=== PATIENT | female | born 1990 | race Caucasian/White ===

== ENCOUNTER 2017-02-11 00:05 | Inpatient (IN) ==
--- NOTE | 2017-02-11 00:45 | Emergency Department Note ---
Disposition Clinical Impression: Rhabdomyolysis Qualifiers: Rhabdomyolysis type: non-traumatic Qualified Code(s): M62.82 - Rhabdomyolysis Disposition: Admitted As Inpatient Condition: Good Time of Disposition: 05:04 General Adult HPI - General Chief complaint: ED General Medical Stated complaint: muscle pain all over Time Seen by Provider: 02/11/17 00:34 Source: patient Nursing Notes Reviewed: Yes Vital Signs Reviewed: Yes - History of Present Illness HPI Narrative: 26-year-old female complains of generalized muscle aches, which have been worsening over the past week. She was seen in her primary care provider recently for the same and received lab work. She states she was not told the results of these, but presented to emergency department with worsening pain. Past medical history includes Shaye's/Graves' disease, she states that her thyroid has been removed and she is currently taking levothyroxine. She denies any recent fevers, shortness of breath, seizures, trauma, increases in her exercise workout routine. Pt Subjective Complaint: Muscle aches Onset (ago): week(s) Location: other (Generalized) Pain Scale: 8 Quality: aching Consistency: Worsening Improves with: nothing Worsens with: movement Associated symptoms: Denies: chest pain, diaphoresis, fever/chills, headaches, nausea/vomiting, rash, seizure, shortness of breath, syncope, weakness, other ( denies injury/trauma) Treatments Prior to Arrival: NSAID - Related Data Home Medications Medication Instructions Recorded Confirmed Levothyroxine 137 mcg PO ONCE 02/11/17 02/11/17 Allergies Allergy/AdvReac Type Severity Reaction Status Date / Time nystatin Allergy Blister Verified 02/11/17 00:30 All systems ED: reviewed and negative except as stated. Constitutional: Denies: fever Eyes: Denies: eye pain ENT ED: Denies: ear pain Cardiovascular: Denies: chest pain, paroxysmal nocturnal dyspnea Respiratory: Denies: dyspnea Gastrointestinal: Denies: abdominal pain, nausea, vomiting Genitourinary: Denies: dysuria Musculoskeletal: Denies: back pain Integumentary: Denies: rash Neurological: Denies: headache Psychiatric: Denies: anxiety Endocrine: Denies: fatigue Hematological/Lymphatic: Denies: easy bleeding Allergic/Immunologic: Denies: facial swelling Past Medical History - Past Medical History Medical history: Reports: kidney stones, thyroid disease Psychiatric history: Reports: anxiety - Social History Smoking Status: Never smoker Alcohol use: Reports: none Drug use: Reports: none Physical Exam - General Limitations: no limitations General appearance: alert, in no apparent distress - Head Head exam: normocephalic - Eye Eye exam: Present: EOMI. Absent: conjunctival injection - ENT ENT exam: normal oropharynx, mucous membranes moist - Neck Neck exam: Present: full ROM. Absent: tenderness, meningismus - Chest Chest inspection: Present: symmetric chest wall rise - Respiratory Respiratory exam: Present: normal lung sounds bilaterally. Absent: respiratory distress - Cardiovascular Cardiovascular exam: Present: regular rate, normal rhythm - Abdominal Exam Abdominal exam: Present: soft, Non-Tender, normal bowel sounds - Extremities Exam Extremities exam: Present: normal inspection, tenderness, normal capillary refill - Back Exam Back exam: Present: normal inspection, full ROM. Absent: CVA tenderness (R), CVA tenderness (L) - Neurological Exam Neurological exam: Present: alert, oriented X3 - Psychiatric Psychiatric exam: Present: normal affect, normal mood - Skin Skin exam: Present: warm, dry, intact, normal color. Absent: rash, cyanosis, diaphoresis Course Course Narrative: 26-year-old female complains of muscle aches 3 days. She states they started after her kidney stone pass last week. She is scheduled to see Dr. Lawson next week. She is at her primary care provider's office he had drawn some lab work. Her able to review those labs today, and she does have an elevated CK, as well as liver enzymes. Her TSH is decreased, however she states that this is chronic. Her creatinine function is within normal limits. Patient states that she has been lifting small hand weights and exercising 2 miles over the past 3 months, denies any heat exposure, ears, chills., Chest pain, shortness of breath. Weakness. We will draw additional lab work, UA, and start fluids. Patient seen and examined. She is resting antiemetic, after becoming nauseous during the IV placement. - Reevaluation(s) Reevaluation #1: Patient has elevated CK, but indicated on urinalysis. Patient has recent the past kidney stone, positive blood possibly from kidney stone versus myoglobin. However in light of her muscle aches, will treat as rhabdo. Patient also is elevated liver enzymes, chronic thyroid disease. Reevaluation #2: I discussed patient with Dr. Park, who also had a stomach palpation, and had advised admission for further treatment and evaluation. Patient agreeable to admission. She states no relief after [place] pain medication, will order a muscle relaxer. Time: 04:36 Reevaluation #3: Patient discussed with and accepted by hospitalist Dr. Humphrey, who also requested repeat CK, ionized calcium, phosphorus, magnesium. He also stated patient will need a telemetry bed for monitoring. Time: 05:03 Vital Signs Temperature 98.2 F 02/11/17 00:27 Pulse Rate 98 02/11/17 00:27 Respiratory Rate 16 02/11/17 00:27 Blood Pressure 111/87 02/11/17 00:27 O2 Sat by Pulse Oximetry 98 02/11/17 00:27 Temperature 97.9 F 02/11/17 07:04 Pulse Rate 86 02/11/17 07:04 Respiratory Rate 18 02/11/17 07:04 Blood Pressure 101/67 02/11/17 07:04 O2 Sat by Pulse Oximetry 99 02/11/17 07:04 Oxygen Delivery Oxygen Delivery Room Air Medical Decision Making - MDM Narrative Medical decision making narrative: Patient presented with one week history of generalized muscle aches. She is seen at her PCPs office yesterday and had drawn lab work. She presented at the worst department today with worsening pain. Review of her PCP ordered lab work shows elevated CK, further evaluation showed a ablation LDL, liver enzymes. No elevated creatinine, no evidence of any renal dysfunction at this time. She was given a total 4 L here in the emergency department. I discussed patient with Dr. Park also had face time with patient, and advised for admission. Patient was discussed with and accepted by hospitalist. She was given [place] and Norflex for her pain. Her vitals are stable. All Lab Results (24 Hours) 02/11/17 02/11/17 02/11/17 Range/Units 00:40 00:46 06:00 Sodium 137 (136-145) mEq/L Potassium 3.9 (3.5-4.5) mEq/L Chloride 101 (98-109) mEq/L Carbon Dioxide 25 (19-29) mEq/L BUN 17 (7-20) mg/dL Creatinine 0.80 (0.57-1.11) mg/dL Est GFR ( Amer) > 60 (> 60) Est GFR (Non-Af Amer) > 60 (> 60) BUN/Creatinine Ratio 21 (6-26) Glucose 84 (70-99) mg/dL Calculated Osmolality 285 (280-300) Calcium 10.0 (8.6-10.8) mg/dL Ionized Calcium 1.18 (1.15-1.35) mmol/L Phosphorus 4.7 (2.3-4.7) mg/dL Magnesium 1.9 (1.6-2.6) mg/dL Lactate Dehydrogenase 722 H (159-327) Units/L Creatine Kinase 62012 H (29-168) Units/L Urine Color Yellow (Yellow) Urine Clarity Cloudy A (Clear) Urine pH 6.0 (5.0-8.0) pH Units Ur Specific [place] 1.029 H (1.010-1.025) Urine Protein 30 H (Neg-Trace) mg/dL Urine Glucose (UA) Normal (Normal) mg/dL Urine Ketones Negative (Negative) mg/dL Urine Blood Moderate H (Negative) Urine Nitrite Negative (Negative) Urine Bilirubin Negative (Negative) Urine Urobilinogen Normal (Normal) mg/dL Ur Leukocyte Esterase Moderate H (Negative) Urine Microscopic RBC 0-3 (0-3) per hpf Urine Microscopic WBC 50-100 H (0-3) per hpf Ur Squamous Epith Cells Many H (None-Few) per lpf Calcium Oxalate Crystal Present Urine Bacteria Many H (None-Few) per hpf Hyaline Casts None Seen (None-Few) per lpf Ur Culture Indicated? YES A (NO) - Medical Records Medical records reviewed: Yes I reviewed the patient's medical records. - Lab Data Lab results reviewed: Yes I reviewed the patient's lab results. Result diagrams: 02/11/17 00:46 Lab Results 02/11/17 02/11/17 Range/Units 00:40 00:46 Sodium 137 (136-145) mEq/L Potassium 3.9 (3.5-4.5) mEq/L Chloride 101 (98-109) mEq/L Carbon Dioxide 25 (19-29) mEq/L BUN 17 (7-20) mg/dL Creatinine 0.80 (0.57-1.11) mg/dL Est GFR ( Amer) > 60 (> 60) Est GFR (Non-Af Amer) > 60 (> 60) BUN/Creatinine Ratio 21 (6-26) Glucose 84 (70-99) mg/dL Calculated Osmolality 285 (280-300) Calcium 10.0 (8.6-10.8) mg/dL Phosphorus 4.7 (2.3-4.7) mg/dL Magnesium 1.9 (1.6-2.6) mg/dL Lactate Dehydrogenase 722 H (159-327) Units/L Creatine Kinase 47973 H (29-168) Units/L Urine Color Yellow (Yellow) Urine Clarity Cloudy A (Clear) Urine pH 6.0 (5.0-8.0) pH Units Ur Specific [place] 1.029 H (1.010-1.025) Urine Protein 30 H (Neg-Trace) mg/dL Urine Glucose (UA) Normal (Normal) mg/dL Urine Ketones Negative (Negative) mg/dL Urine Blood Moderate H (Negative) Urine Nitrite Negative (Negative) Urine Bilirubin Negative (Negative) Urine Urobilinogen Normal (Normal) mg/dL Ur Leukocyte Esterase Moderate H (Negative) Urine Microscopic RBC 0-3 (0-3) per hpf Urine Microscopic WBC 50-100 H (0-3) per hpf Ur Squamous Epith Cells Many H (None-Few) per lpf Calcium Oxalate Crystal Present Urine Bacteria Many H (None-Few) per hpf Hyaline Casts None Seen (None-Few) per lpf Ur Culture Indicated? YES A (NO) - Radiology Data Radiology results reviewed: Yes I reviewed the patient's radiology results. Attestation Statement - Attestation Attestation: I, Claudio Park MD, personally performed a history and physical exam of the patient and discussed their management with the midlevel provicer, PAC/TRIM MASTER OPERATOR. I reviewed the midlevel provider's note and agree with the documented findings, medical decision making, and plan of care. 26-year-old female presents to the emergency department with a complaint of generalized muscle aches and pain which started 1 week ago and has gotten progressively worse. She denies any injury no excessive activity or new exercising. He states that she did have a kidney stone last week and passed 2 stones on and then the pain started on Monday in her feet and has progressively moved up to involve her entire body. She states it feels like charley horses all over her body. She has had difficulty walking due to the pain. She states the pain does seem to get worse when she sits or still for a while and then when she gets up and moves around it gets better. She was seen yesterday by her PCP and had lab work done but does not know the results. These labs were reviewed and her CK was greater than 16,000. On examination patient is a well-developed well-nourished well-appearing young female in no acute distress. She is alert and oriented 3. There is no cyanosis or diaphoresis. Breath sounds are clear and equal bilaterally. Heart regular rate and rhythm. Abdomen soft and nontender with normal bowel sounds. Labs reviewed. The hospitalist, Dr. Humphrey, was consulted and accepted admission of the patient for acute rhabdomyolysis of uncertain etiology.
[2017-02-11 00:52] LABS: Bilirubin,Urine Negative (Negative); Blood,Urine Moderate (Negative); Clarity,Urine Cloudy (Clear); Color,Urine Yellow (Yellow); Glucose,Urine (UA) Normal (Normal); Ketones,Urine Negative (Negative); Leukocyte Esterase,Urine Moderate (Negative); Nitrite,Urine Negative (Negative); Protein,Urine 30 mg/dL (Neg-Trace); Specific Gravity,Urine 1.029 (1.010-1.025); Urobilinogen,Urine Normal (Normal)
[2017-02-11] MEDS ORDERED: Ondansetron 4 MG/2 ML VIAL IVP ONE (00:52)
[2017-02-11 00:53] LABS: Bacteria,Urine Many per hpf (None-Few); Hyaline Casts,Urine None Seen per lpf (None-Few); Squamous Epithelial Cell,Urine Many per lpf (None-Few); WBC,Urine 50-100 per hpf (0-3)
[2017-02-11] MEDS: 0.9 % Sodium Chloride 1,000 ML IVC SCH ×10 (01:00→18:02)
[2017-02-11 01:05] LABS: Calcium Oxalate Crystals,Urine Present
[2017-02-11 01:06] LABS: RBC,Urine 0-3 per hpf (0-3)
[2017-02-11 01:07] LABS: BUN/Creatinine Ratio 21 (6-26); Blood Urea Nitrogen 17 mg/dL (7-20); Carbon Dioxide 25 mEq/L (19-29); Chloride 101 mEq/L (98-109); Glucose 84 mg/dL (70-99); Osmolality,Calculated 285 (280-300); Potassium 3.9 mEq/L (3.5-4.5); Sodium 137 mEq/L (136-145); eGFR For African Americans > 60 (> 60); eGFR For Non-African Americans > 60 (> 60)
[2017-02-11 01:09] LABS: Lactate Dehydrogenase 722 Units/L (159-327)
[2017-02-11] MEDS ORDERED: *HR* HYDROcodone/Acet 5/325 mg TABLET PO ONE (03:33)
[2017-02-11] MEDS ORDERED: Orphenadrine 60 MG/2 ML VIAL IVP ONE (04:48)
[2017-02-11 05:57] LABS: Magnesium 1.9 mg/dL (1.6-2.6); Phosphorous 4.7 mg/dL (2.3-4.7)
[2017-02-11 06:28] LABS: Creatine Kinase 21715 Units/L (29-168)
[2017-02-11] MEDS ORDERED: Naloxone 0.4 MG/ML INJ IVP PRN (08:11)
--- NOTE | 2017-02-11 08:28 | Internal Med History&Physical ---
Date of Encounter: 02/11/17 Time of Encounter: 08:25 Assessment and Plan (1) Rhabdomyolysis Current visit: Yes Status: [place] [address] with elevated LDH. she has no obvious etiology, no h/o exertion out of ordinary, no trauma or fall , no new medications. she has h/o autoimmune disease Grave's disease, have to r/o other autoimmune myopathies like polymyositis or dermatomyositis , though this seems to be an acute presentation than chronic. will send ESR, CRP or aldolase, will continue IVF and muscle relaxants and follow CK levels daily. may need referral to cement mason helper if autoimmune disease seems likely. Qualifiers: Rhabdomyolysis type: non-traumatic Qualified Code(s): M62.82 - Rhabdomyolysis (2) Graves disease Current visit: Yes Status: Acute reports that it started as Shaye's which later converted to Graves' disease. She is status post total thyroidectomy and was placed on levothyroxine. However TSH is 0.022 today, will check free t3 and t4 I will hold her levothyroxine at this time given until free t3 and t4 results, she needs to be referred to an kilnman. (3) H/O renal calculi Current visit: Yes Status: Acute she says she had a renal stone which passed by itself, asymptomatic at this time (4) Transaminitis Current visit: Yes Status: Acute elevated liver enzymes most likely secondary to rhabdomyolysis. Denies any history of hepatitis in the past. We will continue IV fluids, trend of liver enzymes daily. Internal Medicine - H&P: HPI Chief complaint: muscle pain Admitted From: Home Plans for Post Hospital Care: Home History of present illness: Ms. Hickman is a 26 year old female with PMH of Shaye's disease , later converted to Graves disease and is s/p total thyroidectomy, h/o renal stone presents with complains of generalized muscle aches, which have been worsening over the past week. She was seen in her primary care provider recently for the same and received lab work. She states she was not told the results of these, but presented to emergency department with worsening pain. She denies any recent fevers, shortness of breath, seizures, trauma, increases in her exercise workout routine. she says it started with her b/l lower legs where she started hurting which gradually moved up to her body. she denies taking any new medictaion, no fever, n/v. she has no hematuria,no abdominal pain, no cough, chest pain or sob. Past Med Surg Social Fam HX - Past Medical History Medical history: kidney stones, thyroid disease Psychiatric history: anxiety - Social History Smoking Status: Never smoker Alcohol use: none Drug use: none - Family History Father Hx Family Cardiac Disorders: Yes Internal Medicine - H&P: Meds Levothyroxine Sodium [Synthroid] 137 mcg PO DAILY 02/11/17 [History] l-Norgest/E.estradiol-E.estrad [Seasonique 0.15-0.03-0.01 Tab] 1 each PO DAILY 02/11/17 [History] Allergies nystatin Allergy (Verified 02/11/17 00:30) Blister All Systems PM: A 10-system review of systems was performed and is negative for pertinent findings except as documented above in the HPI. - Constitutional Vitals: Temp Pulse Resp BP Pulse Ox 97.9 F 86 18 101/67 99 02/11/17 07:04 02/11/17 07:04 02/11/17 07:04 02/11/17 07:04 02/11/17 07:04 General appearance: Present: A&O X 3, no acute distress Exam: neck- supple chest- b/l clear, no added sounds CVS-s1 and s2,no mr//g abd-soft, non tender, bs are present ext- no edema , muscle tenderness on palpation of the ext, no redness, no weakness Internal Med - H&P Results - Labs CBC & Chem 7: 02/11/17 08:12 02/11/17 08:12
[2017-02-11 08:49] LABS: Basophils % 0.5 %; Eosinophils # 0.5 K/mcL (0.0-0.6); Hematocrit 36.5 % (35.3-44.9); Immature Granulocytes % 0.3 % (0-4); Lymphocytes # 1.7 K/mcL (0.6-4.6); Lymphocytes % 21.7 %; Mean Corpuscular HGB Conc 34.2 g/dL (31.6-35.5); Mean Corpuscular Hemoglobin 31.2 pg (28.0-33.3); Mean Platelet Volume 10.9 fL (9.4-12.4); Monocytes # 0.7 K/mcL (0.0-1.3); Monocytes % 8.3 %; Platelet Count 163 K/mcL (140-400); Red Blood Count 4.01 M/mcL (3.82-4.97); Red Cell Distribution Width 11.8 % (11.5-14.5); Segmented Neutrophils % 63.2 %
[2017-02-11 08:50] LABS: Hemoglobin 12.5 g/dL (11.5-15.4)
[2017-02-11 09:01] LABS: Alanine Aminotransferase 140 Units/L (0-55); Albumin/Globulin Ratio 1.2 (1.1-2.2); Alkaline Phosphatase 49 Units/L (38-126); Aspartate Amino Transferase 384 Units/L (5-34); BUN/Creatinine Ratio 17 (6-26); Bilirubin,Direct 0.2 mg/dL (0.0-0.5); Bilirubin,Indirect 0.4 mg/dL (0.0-1.2); Bilirubin,Total 0.6 mg/dL (0.2-1.2); Blood Urea Nitrogen 11 mg/dL (7-20); Calcium 8.5 mg/dL (8.6-10.8); Carbon Dioxide 25 mEq/L (19-29); Chloride 109 mEq/L (98-109); Globulin 2.6 g/dL (2.4-3.5); Glucose 84 mg/dL (70-99); Osmolality,Calculated 289 (280-300); Potassium 3.6 mEq/L (3.5-4.5); Sodium 140 mEq/L (136-145); eGFR For African Americans > 60 (> 60); eGFR For Non-African Americans > 60 (> 60)
[2017-02-11 09:02] LABS: Albumin 3.2 g/dL (3.5-5.0); Total Protein 5.8 g/dL (6.0-8.3)
[2017-02-11 09:21] LABS: C-Reactive Protein 6 mg/L (Less than 5)
[2017-02-11 10:46] LABS: Creatine Kinase 20604 Units/L (29-168)
[2017-02-12] MEDS: 0.9 % Sodium Chloride 1,000 ML IVC SCH ×4 (01:16→22:00)
[2017-02-12 06:25] LABS: Thyroid Stimulating Hormone 0.076 mcIU/mL (0.350-4.840); Triiodothyronine (T3) Free 2.53 pg/mL (1.71-3.71)
[2017-02-12 07:43] LABS: BUN/Creatinine Ratio 10 (6-26); Blood Urea Nitrogen 6 mg/dL (7-20); Calcium 8.5 mg/dL (8.6-10.8); Carbon Dioxide 24 mEq/L (19-29); Chloride 108 mEq/L (98-109); Glucose 93 mg/dL (70-99); Osmolality,Calculated 287 (280-300); Potassium 3.6 mEq/L (3.5-4.5); Sodium 140 mEq/L (136-145); eGFR For African Americans > 60 (> 60); eGFR For Non-African Americans > 60 (> 60)
[2017-02-12 08:12] LABS: Creatine Kinase 17591 Units/L (29-168)
--- NOTE | 2017-02-12 11:37 | Internal Med Progress Note ---
Date of Encounter: 02/12/17 Time of Encounter: 10:15 - Assessment and plan (1) Rhabdomyolysis Current Visit: Yes Status: Acute Assessment and plan: CPK level is improving. Continue IV hydration. Trend CPK levels. ESR is normal and CRP is slightly elevated. Serum aldolase level is pending. We will also check PTH level. Moderate risk for complications. Qualifiers: Rhabdomyolysis type: non-traumatic Qualified Code(s): M62.82 - Rhabdomyolysis (2) Graves disease Current Visit: Yes Status: Chronic Assessment and plan: TSH level is slightly lower than normal. We will decrease her levothyroxine dosage. (3) H/O renal calculi Current Visit: Yes Status: Acute Assessment and plan: Patient having calcium oxalate crystals in her urine and recently passed stones. Encouraged increased oral fluids. We will also arrange for follow-up with nephrology. - Subjective Interval history: Patient continues to have generalized muscle pain in all her extremities with some tightness in her legs. Having good urine output. No fever or chills or night sweats. No hematuria. - Constitutional Vitals: Temp Pulse Resp BP Pulse Ox 98.0 F 86 16 99/64 97 02/12/17 07:37 02/12/17 07:37 02/12/17 07:37 02/12/17 07:37 02/12/17 07:37 General appearance: Present: A&O X 3, no acute distress - Respiratory Respiratory exam: Present: CTAB. Absent: accessory muscle use, rales, rhonchi, wheezes - Cardiovascular Cardiovascular exam: Present: RRR, +S1, +S2. Absent: diastolic murmur, gallop, rubs, systolic murmur - GI/Abdominal GI/Abdominal exam: Present: normal bowel sounds, soft, no peritoneal signs. Absent: distended, tenderness - Extremities Exam Extremities exam: Present: tenderness (Tender muscles in lower extremity), warm , radial pulses palpable and symetrical. Absent: calf tenderness, cyanotic, pedal edema - Neurological Exam Neurological exam: Present: CN II-XII intact, oriented X3, no focal deficits. Absent: facial droop, speech deficit Internal Medicine: Result - Labs CBC & Chem 7: 02/11/17 08:12 02/12/17 05:17 Labs: BMP 02/12/17 05:17 Sodium 140 Potassium 3.6 Chloride 108 Carbon Dioxide 24 BUN 6 L Creatinine 0.62 Glucose 93 Calcium 8.5 L Consult Discharge Plan - Plan Referrals: Luzmaria Lozano MD [Primary Care Provider] - - Attending Attestation This document has been at least partially created by [employer] recognition technology by Dr. Schaefer. Errors in grammar, wording or other phrases may exist. If errors are found after the documentation is signed, they will be addressed individually in the addendum section of this document when appropriate.
[2017-02-12] MEDS ORDERED: Acetaminophen 325 MG TABLET PO PRN (15:02)
[2017-02-12] MEDS ORDERED: Ibuprofen 400 MG TABLET PO PRN (15:02)
[2017-02-13] MEDS: *HR* Heparin 5,000 UNIT/ML VIAL SQ SCH ×3 (00:26→17:08)
[2017-02-13 04:20] LABS: BUN/Creatinine Ratio 10 (6-26); Blood Urea Nitrogen 6 mg/dL (7-20); Calcium 8.8 mg/dL (8.6-10.8); Carbon Dioxide 26 mEq/L (19-29); Chloride 107 mEq/L (98-109); Glucose 95 mg/dL (70-99); Osmolality,Calculated 285 (280-300); Potassium 3.7 mEq/L (3.5-4.5); Sodium 139 mEq/L (136-145); eGFR For African Americans > 60 (> 60); eGFR For Non-African Americans > 60 (> 60)
[2017-02-13] MEDS: 0.9 % Sodium Chloride 1,000 ML IVC SCH ×3 (05:20→19:35)
--- NOTE | 2017-02-13 11:36 | Internal Med Progress Note ---
Date of Encounter: 02/13/17 Time of Encounter: 08:50 - Assessment and plan (1) Rhabdomyolysis Current Visit: Yes Status: Acute Assessment and plan: CK remains elevated. Discussed and consulted rheumatology. We will await recommendations. Moderate risk for complications. Qualifiers: Rhabdomyolysis type: non-traumatic Qualified Code(s): M62.82 - Rhabdomyolysis (2) Graves disease Current Visit: Yes Status: Chronic Assessment and plan: Status post total thyroidectomy. On levothyroxine currently. PTH levels are normal. (3) H/O renal calculi Current Visit: Yes Status: Acute Assessment and plan: We will arrange for follow-up with nephrology for further management. Encouraged intake of by mouth fluids. Information provided to the patient on prevention of renal calculi. - Subjective Interval history: Patient's muscle pain is improving. Continues to have good urine output. No other complaints at this time. - Constitutional Vitals: Temp Pulse Resp BP Pulse Ox 98.0 F 81 18 100/67 99 02/13/17 08:08 02/13/17 08:08 02/13/17 08:08 02/13/17 08:08 02/13/17 09:30 General appearance: Present: A&O X 3, no acute distress, answers questions appropriately - Respiratory Respiratory exam: Present: CTAB. Absent: accessory muscle use, rales, rhonchi, wheezes - Cardiovascular Cardiovascular exam: Present: RRR, +S1, +S2. Absent: diastolic murmur, gallop, rubs, systolic murmur - GI/Abdominal GI/Abdominal exam: Present: normal bowel sounds, soft, no peritoneal signs. Absent: distended, tenderness - Extremities Exam Extremities exam: Present: warm, radial pulses palpable and symetrical. Absent : calf tenderness, cyanotic, pedal edema Additional comments: Muscles are less tender today. - Neurological Exam Neurological exam: Present: CN II-XII intact, no focal deficits. Absent: facial droop, speech deficit - Skin Skin exam: Present: dry, intact Internal Medicine: Result - Labs CBC & Chem 7: 02/11/17 08:12 02/13/17 02:45 Labs: BMP 02/13/17 02:45 Sodium 139 Potassium 3.7 Chloride 107 Carbon Dioxide 26 BUN 6 L Creatinine 0.63 Glucose 95 Calcium 8.8 Consult Discharge Plan - Plan Referrals: Luzmaria Lozano MD [Primary Care Provider] - (In one week) Pietro Starr MD [Partnered Physician] - (Within one week for kidney stones) - Attending Attestation This document has been at least partially created by [employer] recognition technology by Dr. Schaefer. Errors in grammar, wording or other phrases may exist. If errors are found after the documentation is signed, they will be addressed individually in the addendum section of this document when appropriate.
--- NOTE | 2017-02-13 12:53 | Rheumatology Consult Note ---
Date of Encounter: 02/13/17 Time of Encounter: 11:30 Rheumatology Assess and Plan (1) Elevated CK Current Visit: Yes Status: Acute This patient has a sudden onset of diffuse myalgias with associated elevation in CK, AST,ALT which suggests muscle involvement. History of sudden onset, lack of weakness not overly suggestive of inflammatory myosotis. Thyroid, PTH studies overall unremarkable so I doubt endorcinologic cause She also was taking phentermine and reports poor hydration due to renal stones and feeling unwell that I wonder if this may be a drug induced myopathy, however when I did a search on pubmed I did not find much in the way of reported cases so this may be unrelated. I discussed the plan with the patient and her mother. I am hopeful that with another day of hydration that we will start to see a better trend downward of the muscle enzymes and will hold off on further extensive workup. Though if muscle enzymes continue to be high, I may want to consider an MRI of an affected muscle, consider outpatient EMG to prepare for possible biopsy. - Continue current management with fluids and supportive care (2) Myalgia Current Visit: Yes Status: Acute (3) Abnormal AST and ALT Current Visit: Yes Status: Acute I suspect this is from muscle damage and will hopefully trend with CK levels Rheumatology HPI Consult date: 02/13/17 Requesting physician: Marie Schaefer Consult reason: Elevated CK Chief complaint: Muscle pain History of present illness: Ms. 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 In summary, aptient states that since last , she had kidney stones; states she has been on pyridium and Flomax since 01/22. She states that the following day she started having pain in her feet and a soreness in her muscles. She reports that the aching the proceeded to up her entire body to move to her shoulders as well. The pain is described as an ache and a tightness in her muscles; it is moderate/severe in intensity. She eventually came to the emergency room on 02/11; she was found to have a CK 20,000, LFTs abnormal. She has been hydrated and placed on a muscle relaxer with some benefits in her symptoms thus far. She states that she has had no weakness; she is able to raise her arms above her head, get up from a seated position without the use of her arms, no problems swallowing. She states she has a history of biopsy proven folliculitis but has had no other rashes. She states she has had no joint pain, alopecia, oral ulcerations, pleuritic chest pain, cough, chest pain, shortness of breath and she has had no Raynauds (triphasic discoloration to her fingers). She states that 4 months ago, she started taking Adipex for weight loss. She denies any other medications OTC or drugs of any sort. She states overall her thyroid has been undergood control. No paresthesias either. Past Med Surg Social Fam HX - Past Medical History Medical history: kidney stones, thyroid disease Psychiatric history: anxiety - Social History Smoking Status: Never smoker Alcohol use: none Drug use: none - Family History Father Hx Family Cardiac Disorders: Yes Medications and Allergies Levothyroxine Sodium [Synthroid] 137 mcg PO DAILY 02/11/17 [History] l-Norgest/E.estradiol-E.estrad [Seasonique 0.15-0.03-0.01 Tab] 1 each PO DAILY 02/11/17 [History] Allergies nystatin Allergy (Verified 02/11/17 00:30) Blister All Systems Review: General - no recent weight loss, weight gain, fatigue or fevers Eyes - no redness, loss of vision, dryness/itching/foreign body sensation ENT - + dryness of mouth, no oral ulcerations, nasal ulcerations, sore throat Cardiovascular - no chest pain, palpitations, lightheadedness, syncope or arm/ leg claudication Respiratory - no shortness of breath, difficulty breathing at night, pleuritic chest pain and no cough Gastrointestinal - no nausea, vomiting, diarrhea, bloating, black/tarry stools, blood in stools or heartburn Genitourinary - no pain on urination, hematuria, frothy urine or ulcerations. Musculoskeletal - no morning stiffness, joint swelling, + muscle aches Integumentary - no easy bruising, rashes, hives, photosensitivity, skin thickening, alopecia, color changes of hands. Neurological - no muscle weakness or paresthesias Hematologic/lymphatic - no tender or swollen glands, history of anemia or blood clots Rheumatology Exam Vital Signs, Last 4 Hours Temp Pulse Resp BP Pulse Ox 02/13/17 12:34 98.2 F 83 17 99/64 97 02/13/17 09:30 99 Exam: General - Alert and oriented x 3, no acute distress and appears comfortable HEENT - Conjunctiva clear, no alopecia or hair thinning, no facial rash, no nasal or oral mucosal lesions/ulcerations Heme/Lymph - No cervical or supraclavicular lymph node enlargement or tenderness. No pallor. Heart - S1S2 regular in rate and rhythm without murmurs, clicks or rubs. No peripheral edema. Radial pulses equal and strong Lungs - Unlabored breathing, clear to auscultation bilaterally without wheezes or crackles; no decrease in chest expansion Abdomen - Soft, nontender, nondistended. Unable to palpate any hepatosplenomegaly Skin - No clubbing, nodules, tophi, psoriasis, erythema, petichiae, malar rash, telangiectasias, sclerodactyly, nail pitting, onycholysis, digital ulcers; maya erythematous lesions on chest Neurological - Gait normal, muscle strength 5/5 in all four extremities; Patellar reflex and left bicipital reflex 2+; unable to do right bicipital refex due to IV in place. No clonus. Musculoskeletal - Full ROM, no synovitis, no joint tenderness, no tenderness to palpation of spine Rheumatology Results 02/11/17 08:12 02/13/17 02:45 All other labs normal. Consult Discharge Plan - Plan Referrals: Pietro Starr MD [Partnered Physician] - (Within one week for kidney stones) Luzmaria Lozano MD [Primary Care Provider] - 02/17/17 1:30 pm (Please follow up as schedule...)
[2017-02-13] MEDS ORDERED: Ondansetron 4 MG/2 ML VIAL IVP PRN (17:28)
[2017-02-14 00:25] LABS: Bilirubin,Urine Negative (Negative); Blood,Urine Small (Negative); Clarity,Urine Clear (Clear); Color,Urine Yellow (Yellow); Glucose,Urine (UA) Normal (Normal); Ketones,Urine Negative (Negative); Leukocyte Esterase,Urine Negative (Negative); Nitrite,Urine Negative (Negative); Protein,Urine Negative (Neg-Trace); Specific Gravity,Urine 1.016 (1.010-1.025); Urobilinogen,Urine Normal (Normal)
[2017-02-14 00:28] LABS: Bacteria,Urine None Seen per hpf (None-Few); Hyaline Casts,Urine None Seen per lpf (None-Few); Squamous Epithelial Cell,Urine Many per lpf (None-Few); WBC,Urine 0-3 per hpf (0-3)
[2017-02-14] MEDS: 0.9 % Sodium Chloride 1,000 ML IVC SCH ×2 (02:01→08:49)
[2017-02-14 04:24] LABS: Alanine Aminotransferase 195 Units/L (0-55); Albumin 3.3 g/dL (3.5-5.0); Alkaline Phosphatase 53 Units/L (38-126); Aspartate Amino Transferase 365 Units/L (5-34); BUN/Creatinine Ratio 11 (6-26); Bilirubin,Total 0.7 mg/dL (0.2-1.2); Blood Urea Nitrogen 8 mg/dL (7-20); Calcium 8.9 mg/dL (8.6-10.8); Carbon Dioxide 25 mEq/L (19-29); Chloride 106 mEq/L (98-109); Globulin 3.3 g/dL (2.4-3.5); Glucose 94 mg/dL (70-99); Osmolality,Calculated 288 (280-300); Potassium 3.8 mEq/L (3.5-4.5); Sodium 140 mEq/L (136-145); Total Protein 6.6 g/dL (6.0-8.3); eGFR For African Americans > 60 (> 60); eGFR For Non-African Americans > 60 (> 60)
[2017-02-14] MEDS: *HR* Heparin 5,000 UNIT/ML VIAL SQ SCH (05:50)
[2017-02-14 06:51] LABS: Creatine Kinase 15243 Units/L (29-168)
--- NOTE | 2017-02-14 07:56 | Rheumatology Progress Note ---
Date of Encounter: 02/14/17 Time of Encounter: 07:30 Rheumatology Assess and Plan (1) Elevated CK Current Visit: Yes Status: Acute CK is trending down, LFTs remain elevated and she continues to have myalgias. No weakness on exam. - I did review the medications she is on to look for case reports of drug induced muscle damage and did not see much of a correlation. - I instructed the patient that on her discharge to stay hydrated, avoid strenuous exercise or activity. - I would like her to get labs next Monday and I will see her follow-up on Monday to discuss results and further plan. - I will hold off on further autoimmune workup but if she does not respond appropriately, will further investigate. (2) Myalgia Current Visit: Yes Status: Acute Will continue to follow, likely related to underlying myopathy. Consider acetaminophen as needed; I suspect LFT elevation more due to muscle involvement rather than liver. (3) Abnormal AST and ALT Current Visit: Yes Status: Acute I suspect this is from muscle damage and will hopefully will trend down with CK levels (4) Microscopic hematuria Current Visit: Yes Status: Acute I suspect most likely due to recent nephrolithiasis. Will need repeating as outpatient. - Subjective Interval history: Patient seen and examined. Overnight she states she has had some return of the myalgias to her shoulders. She reports it just feels like a constant pull of her muscles. She denies any weakness, difficulty swallowing or shortness of breath. No new rashes. CK has continue to fall now to 15,243. ROS: General - No fevers, no chills, no fatigue Eyes - No red/painful eye ENT - + dry mouth Lungs - No shortness of breath, no cough, no pleuritic chest pain Heart - No chest pain, no palpitations, no syncope Skin - no new rashes; reports rash from patches MSK - + myalgias, no joint pain or swelling, no weakness Neuro - No paresthesias Exam Vital Signs, Last 4 Hours Temp Pulse Resp BP Pulse Ox 02/14/17 03:58 97.7 F 90 16 95/64 96 Exam: General - Alert and oriented x 3, no acute distress Eyes - Conjunctiva clear Heart - S1 S2 regular in rate and rhythm and without murmurs Lungs - Clear to auscultation bilaterally, no crackles, no wheezes MSK - + Tenderness to palpation of shoulders, deltoids. No synovitis or tenderness of joints Neurological - Upper and lower extremities 5/5 muscle strength Objective Data 02/11/17 08:12 02/14/17 03:49 All other labs normal. Consult Discharge Plan - Plan Additional Instructions: Follow-up next Monday, 02/21 with rheumatology Referrals: Pietro Starr MD [Partnered Physician] - (Within one week for kidney stones) Luzmaria Lozano MD [Primary Care Provider] - 02/17/17 1:30 pm (Please follow up as schedule...)
[2017-02-14 11:48] VITALS: BP 102/68
--- NOTE | 2017-02-14 12:33 | Discharge Summary ---
Date of Encounter: 02/14/17 Time of Encounter: 12:31 - Discharge Diagnosis (1) Rhabdomyolysis Priority: Primary Status: Acute Qualifiers: Rhabdomyolysis type: non-traumatic Qualified Code(s): M62.82 - Rhabdomyolysis (2) Graves disease Priority: Secondary Status: Chronic (3) Transaminitis Priority: Secondary Status: Acute (4) Microscopic hematuria Priority: Secondary Status: Acute - Discharge Medications Home Medications: Levothyroxine Sodium [Synthroid] 137 mcg PO DAILY 02/11/17 [History] l-Norgest/E.estradiol-E.estrad [Seasonique 0.15-0.03-0.01 Tab] 1 each PO DAILY 02/11/17 [History] Allergies/Adverse Reactions: Allergies nystatin Allergy (Verified 02/11/17 00:30) Blister Date of admission: 02/12/17 23:09 Primary care physician: Luzmaria Yu Consults: 02/13/17 12:50 Consult to Physician [CONS] Routine Consulting Provider: Masood Clark Reason for Consult: Rhabdomyolysis Time Notified: 12:51 Call Completed: Yes Discharging clinician: Jourdan Kidd Anticipated date of discharge: 02/14/17 - Patient Status Disposition: Home, Self-Care Condition: Good Functional capacity at discharge: independent ambulation Overall status at discharge: patient is back to baseline - Discharge Instructions Instructions: Rhabdomyolysis (DC) Follow Up With: Luzmaria Lozano MD [Primary Care Provider] - 02/17/17 1:30 pm (Please follow up as schedule...) Masood Clark DO [Partnered Physician] - 02/21/17 2:45 pm (Medical Office building [address], Lab work to be done day before. ) Additional Instructions: Follow-up next Monday, 02/21 with rheumatology as scheduled - Diet and Activity Activity: resume usual activities as tolerated Diet: advance to your usual diet Interval History: Ms. Hickman is a 26 year old female with PMH of Shaye's disease , later converted to Graves disease and is s/p total thyroidectomy, h/o renal stone presents admitted for management of rhabdomyolysis after presenting with complains of generalized muscle aches, which have been worsening over the past week. She was seen in her primary care provider recently for the same and received lab work. She states she was not told the results of these, but presented to emergency department with worsening pain. She denies any recent fevers, shortness of breath, seizures, trauma, increases in her exercise workout routine. she says it started with her b/l lower legs where she started hurting which gradually moved up to her body. she denies taking any new medictaion, no fever, n/v. she has no hematuria,no abdominal pain, no cough, chest pain or sob. She was admitted and work up revealed transminitis and hematuria secondary to rhabdo, CK was .27,000. Kidney function remained normal She was started on IVF hydration and CK has trended down slowly She was evaluated by rheumatology with recommendations noted She has made significant improvement and will be discharged home to follow up with rheumatology as out-patient Her TSH was slightly low but Free T3 and Free T4 were WNL, will continue home dose of synthroid and recommend follow up with her PCP Her UA was contaminated on admission but repeat UA is unremarkable Plan of care discussed with patient, verbalized understanding Hospital course: Ms. Hickman is a 26 year old female Seen at bedside , has no new complains Renal function remains stable CK is down-trending Stable for discharge to follow up with PCP and Rheumatology - Time Spent with Patient Total time spent providing and/or coordinating discharge services: Less than 30 minutes - Constitutional Vitals: Temp Pulse Resp BP Pulse Ox 98.0 F 86 18 102/68 97 02/14/17 11:47 02/14/17 11:47 02/14/17 11:47 02/14/17 11:47 02/14/17 11:47 General appearance: Present: A&O X 3, no acute distress, answers questions appropriately - Head Head exam: Present: atraumatic, normocephalic - Eye Eye exam: Present: PERRL, conjuntiva pink, sclera anicteric Pupils: Present: PERRL - Neck Neck exam general surgery: Present: supple, trachea midline. Absent: lymphadenopathy - Respiratory Respiratory exam: Present: CTAB. Absent: accessory muscle use, rales, rhonchi, wheezes - Cardiovascular Cardiovascular exam: Present: RRR, +S1, +S2. Absent: diastolic murmur, gallop, rubs, systolic murmur - GI/Abdominal GI/Abdominal exam: Present: normal bowel sounds, soft, no peritoneal signs. Absent: distended, tenderness - Extremities Exam Extremities exam: Present: warm, radial pulses palpable and symetrical. Absent : calf tenderness, cyanotic, pedal edema - Neurological Exam Neurological exam: Present: CN II-XII intact, oriented X3, no focal deficits. Absent: pronater drift, facial droop, speech deficit - Skin Skin exam: Present: dry, intact
== END 2017-02-14 13:22 | disposition home or self-care (01) | DRG 558 ==
LOC: EMEROO 00:05 → SUATTDRO 05:03 → 2ANU 05:03 → INTOOBSV 05:03 → 2ANU 05:41 → SUATTDRO 02-12 23:09
PROVIDERS: ADMIT Internal Medicine; ATTEND Internal Medicine